=== PATIENT | female | born 1955 | race Caucasian/White ===

== ENCOUNTER → 2016-03-23 | Outpatient (CLI) | payer BC ==
--- NOTE | 2016-03-23 15:16 | DX ---
DEXA Bone Mineral Densitometry Clinical Indications: Postmenopausal, post hysterectomy and oophorectomy, Prolia x1 year, follow-up osteoporosis Comparison: May 05, 2014 Technique: Bone Mineral Densitometry (BMD) by Dual Energy X-Ray Absorptiometry (DEXA) was performed utilizing the [employer] scanner. The lumbar spine was evaluated in the AP projection. The bilat eral hips and forearm were evaluated in the AP projection. Vertebral fracture assessment was also pe rformed. AP Lumbar Spine: The L1, L2, L3 and L4 vertebral bodies were evaluated. BMD: 0.862 gm/cm2 T-score: -2.7 SD Z-score: -1.0 SD Significantly increased by 8.6% AP Left Hip: Total BMD: 0.818 gm/cm2 T-score: -1.5 SD Z-score: -0.2 SD Significantly increased by 5% AP Right Hip: Total BMD: 0.761 gm/cm2 T-score: -2.0 SD Z-score: 0.7 SD No significant change. AP Left Forearm, 02/28: BMD: 0.859 gm/cm2 T-score: -0.2 SD Z-score: 0.9 SD No significant change. Vertebral Fracture Assessment: There is a stable mild T11 compression. No new compressions have deve loped.. No prevertebral aortic calcification, significant marginal bone spurring, facet arthrosis, o r intrinsic vertebral body sclerosis that would effect the accuracy of the lumbar spine BMD measureme nt. Conclusion: Considering the lowest measured site, the patient remains osteoporotic but demonstrates increased BMD. Prolia therapy should be continued as clinically directed.. The ten year FRAX risk for any major osteoporotic fracture is 18.1% and for a hip fracture is 1.6%. Any bone loss in this patient is probably related to aging or estrogen deficiency. To prevent osteoporosis and to promote the patient's bone density, the following recommendations shou ld be considered: 1. Pursue a regular regimen of weightbearing and muscle strengthening exercises in order to reduce t he risk of falls and fractures (as tolerated by the patient's general medical condition). 2. Ensure that daily dietary calcium uptake is maximized. 3. Consider checking the serum vitamin D level. Ensure that intake of vitamin D is 600 IU per day (fo r all ages through 70) . 4. Consider follow-up DEXA scan in one year to reassess the efficacy of pharmacologic intervention.
== END ==
LOC: FIMAGING 08:22
PROVIDERS: ATTEND Internal Medicine Endocrinology, Diabetes & Metabolism
DX: Z13.820 Encounter for screening for osteoporosis (principal); M81.0 Age-related osteoporosis without current pathological fracture

== ENCOUNTER → 2017-01-30 | Outpatient (CLI) | payer BC | LOC: FIMAGING 07:39 | PROVIDERS: ATTEND Family Medicine | DX: Z12.31 Encounter for screening mammogram for malignant neoplasm of breast (principal); Z80.3 Family history of malignant neoplasm of breast | CPT/HCPCS: G0202 ==

== ENCOUNTER → 2018-03-25 | Outpatient (CLI) | payer OTHER | LOC: FIMAGING 08:29 | PROVIDERS: ATTEND Internal Medicine Endocrinology, Diabetes & Metabolism | DX: M81.0 Age-related osteoporosis without current pathological fracture (principal); M85.89 Other specified disorders of bone density and structure, multiple sites; Z78.0 Asymptomatic menopausal state ==